=== PATIENT | female | born 1935 | race Caucasian/White ===

== ENCOUNTER → 2016-03-24 | Outpatient (CLI) | payer MEDICARE, BC ==
[~2016-03-24] MED LIST: ALPRAZOLAM0.25 M2 PO; BACTRIM DS 8001 TAB PO; BENTYL GENERIC10 MG PO; CIPRO 250MG TA250 MG PO; HYDROCODONE1 TABLE1; LISINOPRIL10 MG PO; NAPROXEN SODIU500 MG PO; XANAX 0.5MG TA0.5 MG PO; ZITHROMAX Z-PA250 M1 PO; ZYRTEC ALLERGY10 MG PO; Zofran4 MG PO
--- NOTE | 2016-03-24 18:59 | RADIOLOGY REPORT PS360 ---
CHEST(2 VIEWS-NOT PORTABLE) ORDERING PHYSICIAN : Juan Fam MD PATIENT AGE: 80 years GENDER: Female INDICATION: BRONCHOPNEUMONIA Cough 7 days TECHNIQUE: PA and lateral chest COMPARISON: 07/04/2015 2 view chest FINDINGS No significant change. No significant new findings. No focal pneumonia We again see prominent markings which appear to reflect scarring and generous pulmonary assess structures at the left infrahilar region, medial left base. This is unchanged since July 2015 study in March 2014 exam. Lungs hyperexpanded and clear. Otherwise. Old wedge compression fracture midthoracic vertebra I believe at T7 is stable since July 2015. Chest wall unchanged. No pleural effusion or findings. IMPRESSION: Stable chronic changes at the chest nothing definitely acute.
== END ==
LOC: RAD 12:46
DX: J18.0 Bronchopneumonia, unspecified organism (principal)

== ENCOUNTER → 2016-04-09 | Outpatient (CLI) | payer MEDICARE, BC ==
--- NOTE | 2016-04-09 19:20 | RADIOLOGY REPORT PS360 ---
KNEE-3 VIEWS-RT HISTORY: Knee pain OSTEOARTHRITIS ORDERING PHYSICIAN: Juan Fam MD PATIENT AGE: 80 years COMPARISON: None FINDINGS: There are severe osteoarthritic changes of the medial compartment and moderate osteoarthritic changes of the lateral compartment and severe osteoarthritic change of the patellofemoral joint. There is some cortical sclerosis and flattening of the medial femoral condyle. No acute fracture or dislocation. Nonspecific soft tissue calcifications are present along the medial aspect of the distal femur. IMPRESSION: 1. Severe osteoarthritic change as detailed above
== END ==
LOC: RAD 16:23
DX: M17.11 Unilateral primary osteoarthritis, right knee (principal)

== ENCOUNTER 2016-11-07 06:41 | Day surgery (SDC) | payer MEDICARE, BC ==
[~2016-11-07 06:41] MED LIST changes: +LISINOPRIL20 MG PO
--- NOTE | 2016-11-07 08:42 | Operative Note ---
Colonoscopy (Larissa) Procedure date: 11/07/16 Date of : 39 Procedure:Colonoscopy Colonoscopy with cold snare polypectomy Indications: Mrs. Schaeffer is a 80-year-old female who is here for follow-up screening/ surveillance colonoscopy. She does have a history of diverticulitis and chronic constipation. She is doing better with the regular use of the fiber bowel regimen (MiraLAX plus Citrucel by mouth twice a day). The patient was unable to tolerate a bowel prep previously. Her last colonoscopy was in November 2011 at which time she had a diminutive cecal polyp removed. The patient does state that her maternal aunt had colon cancer and her mother and brother had colon polyps. Her mother had ovarian cancer. The patient reports no rectal bleeding or weight loss. Performing Provider: Ladan Dias MD Referrring Provider: Juan Fam M.D. Sedation: Fentanyl 100 mg IV/Versed 7 mg IV Procedure: Prior to the procedure, a history and physical exam was performed, and patient medications and allergies were reviewed. The risks and benefits of the procedure and the sedation options and risks were discussed with the patient. All questions were answered and informed consent was obtained. Patient identification and proposed procedure were verified by the physician and the nurse. The patient was placed in a left lateral decubitus position. Throughout the procedure, the patient's blood pressure, pulse, and oxygen saturations were monitored continuously. Findings: On digital rectal examination there was normal rectal tone. There were no external hemorrhoids. The colonoscope was introduced through the anal canal to the rectum and advanced to the cecum. The ileocecal valve and appendiceal orifice were identified. The scope was advanced a short distance into the ileum which appeared grossly normal. The scope was then withdrawn into the colon. There were 4 colon polyps identified in the cecum 1, ascending 2 and descending 1. These ranged in size from 4-6 mm and were all removed via cold snare polypectomy. There were extensive scattered diverticuli throughout the descending and sigmoid colon (LEFT colon). The rectum itself was normal. Upon retroflexion within the rectum there were grade 1 internal hemorrhoids. Impressions: 1. Colonic polyps 4 2. Extensive left-sided diverticulosis 3. Grade 1 internal hemorrhoids Recommendations: I will follow up the polyp histology and recommend repeat screening/surveillance colonoscopy again in 3 years if all of the polyps are adenomatous. I would encourage continuation of the fiber bowel regimen (MiraLAX plus Citrucel twice a day) on a long-term daily maintenance basis. Complications: None EBL (ml): 0 at 0842
[2016-11-07 17:02] VITALS: BP 124/64
== END 2016-11-07 09:44 | disposition home or self-care (01) ==
LOC: SDC 06:41
PROVIDERS: Internal Medicine Gastroenterology
PROC: 0DBM8ZX Excision of Descending Colon, Via Natural or Artificial Opening Endoscopic, Diagnostic (ICD-10-PCS; 2016-11-07)
PROC: 0DBK8ZX Excision of Ascending Colon, Via Natural or Artificial Opening Endoscopic, Diagnostic (ICD-10-PCS; 2016-11-07)
PROC: 0DBH8ZX Excision of Cecum, Via Natural or Artificial Opening Endoscopic, Diagnostic (ICD-10-PCS; principal; 2016-11-07 08:00)
DX: Z12.11 Encounter for screening for malignant neoplasm of colon (principal); K57.30 Diverticulosis of large intestine without perforation or abscess without bleeding; K64.0 First degree hemorrhoids; Z80.41 Family history of malignant neoplasm of ovary; Z83.71 Family history of colonic polyps

== ENCOUNTER → 2017-01-19 | Outpatient (CLI) | payer MEDICARE, BC ==
[~2017-01-19] MED LIST changes: +DELSYM30 MG/5 ML PO; +ZITHROMAX Z PA250 MG PO
[2017-01-19 12:18] LABS: LYMPH # 1.3 K/mm3 (0.7-4.5); LYMPH % 26.9 % (10-50.0)
[2017-01-19 13:19] LABS: BUN 15 mg/dL (7-18)
[2017-01-19 13:22] LABS: GFR (ESTIMATED) 69 ML/MIN (59-)
== END ==
LOC: LAB 11:48
PROVIDERS: Internal Medicine Adolescent Medicine
DX: R11.0 Nausea (principal)

== ENCOUNTER 2017-01-26 15:58 | Emergency (ER) | payer MEDICARE, BC ==
[~2017-01-26] VITALS: Ht 165.1 cm; Wt 61.2 kg
[~2017-01-26 15:58] MED LIST changes: -DELSYM30 MG/5 ML PO; -ZITHROMAX Z PA250 MG PO
--- OUTSIDE RECORDS SUMMARY | 2017-01-26 16:03 | External Medical Summary Rpt ---
Author Author QUENTIN [facility] Organization [facility] Address Unknown Phone Unavailable Encounter QUENTIN AMBRIZ [id number] Date(s): 07/08/16 - 01/21/17 [facility] [address] [place] [address]- Discharge Disposition: OP Self Care or Home Attending Physician: ANABELL MCNEILL MD-ORT Admitting Physician: ANABELL MCNEILL MD-ORT Referring Physician: ANABELL MCNEILL MD-ORT Reason for Visit XXXXXX Vital Signs No data available for this section Problem List Condition Effective Status Health Informant Dates Status Cataracts, Resolved bilateral(Co nfirmed) Constipation Active (Confirmed) Diverticulit Active is(Confirmed ) Fibromyalgia Active (Confirmed) Heart Active patient murmur(Confi rmed) HTN Active (hypertensio n)(Confirmed ) Anxiety and Active depression(C onfirmed) Osteoarthrit Active is(Confirmed ) Osteoporosis Active (Confirmed) Allergies, Adverse Reactions, Alerts Substance Reaction Severity Status streptomycin tongue numb Active tongue numb albuterol dizziness,felt weird Active dizziness,felt weird statins Muscle ache Active Muscle ache Medications ALPRAZolam (ALPRAZolam 0.25 mg oral tablet)1 Tablet(s) Oral Every Day as needed as needed for anxiety. aspirin (aspirin 81 mg oral delayed release tablet)1 Tablet(s) Oral Two Times A Day for 6 weeks. x 6 weeks following ortho surgery. calcium-vitamin D (Calcium 600+D oral tablet) 2 Tablet(s) Oral Every Day. cholecalciferol (Vitamin D3 1000 intl units oral tablet)1 Tablet(s) Oral At Bedtime. chondroitin-glucosamine (Osteo Bi-Flex Triple Strength oral tablet)1 Tablet(s) Oral Every Day. docusate (Colace 100 mg oral capsule)1 Capsule(s) Oral Every Day as needed as needed for constipation. Refills: 0.Ordering provider: ONEL AVALOS PA gabapentin (gabapentin 300 mg oral capsule)1 Capsule(s) Oral once a day (at bedtime). Refills: 0.Ordering provider: ONEL AVALOS PA lisinopril (lisinopril 20 mg oral tablet) 1 Tablet(s) Oral Every Day. meloxicam (Mobic 15 mg oral tablet) 1 Tablet(s) Oral Every Day. Refills: 0. Ordering provider: ONEL AVALOS PA oxyCODONE (oxyCODONE 5 mg oral capsule)1-2 Cap mg Oral Q6H; as needed for pain. Refills: 0.Ordering provider: ONEL AVALOS PA polyethylene glycol 3350 (MiraLax oral powder for reconstitution)34 gm Oral At Bedtime. psyllium (Metamucil 3.4 g/5.2 g oral powder for reconstitution)3.4 Gram(s) Oral At Bedtime. traMADol (traMADol 50 mg oral tablet)1 Tablet(s) Oral Every 6 Hours as needed as needed for pain. Refills: 0.Ordering provider: ONEL AVALOS PA Results No data available for this section Immunizations No data available for this section Procedures No data available for this section Social History Social History Response Type Smoking Status Never smoker Assessment and Plan No data available for this section Hospital Discharge Instructions No data available for this section
--- OUTSIDE RECORDS SUMMARY | 2017-01-26 16:03 | External Medical Summary Rpt ---
Author Author QUENTIN [facility] Organization [facility] Address Unknown Phone Unavailable Encounter QUENTIN AMBRIZ [id number] Date(s): 07/08/16 - 01/21/17 [facility] [address] [place] [address]- Discharge Disposition: OP Self Care or Home [...]
--- OUTSIDE RECORDS SUMMARY | 2017-01-26 16:03 | External Medical Summary Rpt ---
Author Author QUENTIN [facility] Organization [facility] Address Unknown Phone Unavailable Encounter QUENTIN AMBRIZ [id number] Date(s): 12/31/16 - 01/21/17 [facility] [address] [place] [address]- Discharge Diagnosis: S/p knee replacement Discharge Disposition: IP Self Care / Home Attending Physician: FERNIE KUMAR MD-INT Admitting Physician: FERNIE KUMAR MD-INT Referring Physician: FERNIE KUMAR MD-INT Reason for Visit UNILATERAL PRIMARY OSTEOARTHRITIS, RIGHT KNEE Vital Signs Most recent 1 2 3 to oldest [Reference Range]: Temperature Oral (01/21/17 Oral (01/21/17 Oral (01/20/17 Source 7:20 AM) 3:58 AM) 10:37 PM) Temperature Fahrenheit Fahrenheit Fahrenheit Mode (01/21/17 7:20 (01/21/17 3:58 (01/20/17 10:37 AM) AM) PM) Temperature, 97.1 Deg F 98.5 Deg F 98.7 Deg F Fahrenheit (01/21/17 7:20 (01/21/17 3:58 (01/20/17 10:37 [96.8-99.7 AM) AM) PM) Deg F] Clinical 36.2 Deg C 36.9 Deg C 37.1 Deg C Temperature, (01/21/17 7:20 (01/21/17 3:58 (01/20/17 10:37 C AM) AM) PM) Pulse Method Non-Invasive BP Device (01/07/17 2:14 PM) Pulse Rhythm Irregular (01/07/17 2:14 PM) Peripheral 66 bpm Pulse Rate (01/07/17 2:14 PM) [60-100 bpm] Heart Rate 66 bpm (01/21/17 78 bpm (01/21/17 79 bpm (01/20/17 Monitored 7:20 AM) 3:58 AM) 10:37 PM) [60-100 bpm] Respiratory 16 Breaths/Min 16 Breaths/Min 13 Breaths/Min Rate [14-20 (01/21/17 7:20 (01/20/17 7:59 *LOW*(01/20/17 Breaths/Min] AM) PM) 3:40 PM) Blood Arm, left upper Arm, right upper Pressure (01/20/17 11:09 (01/07/17 2:14 PM) Location AM) Blood Non-Invasive BP Non-Invasive BP Pressure Device (01/20/17 Device (01/07/17 Source 11:09 AM) 2:14 PM) Blood Sitting (01/20/17 Sitting Pressure 11:09 AM) (01/07/17 2:14 PM) Position Blood 120/67 mmHg 105/60 mmHg 111/69 mmHg Pressure (01/21/17 7:20 (01/21/17 3:58 (01/20/17 10:37 [90-140/60-9 AM) AM) PM) 0 mmHg] Mean 85 mmHg (01/21/17 75 mmHg (01/21/17 83 mmHg (01/20/17 Arterial 7:20 AM) 3:58 AM) 10:37 PM) Pressure (MAP) Mean 92 (01/21/17 7:20 73 (01/21/17 3:58 88 (01/20/17 Arterial AM) AM) 10:37 PM) Pressure (MAP)-BMDI Oxygen 98 % (01/21/17 97 % (01/21/17 97 % (01/20/17 Saturation 7:20 AM) 3:58 AM) 10:37 PM) [94-100 %] Oxygen Room air Room air Room air Therapy Mode (01/21/17 8:00 (01/21/17 7:21 (01/20/17 8:00 AM) AM) PM) Oxygen Flow 2 Liter/Min 2 Liter/Min 2 Liter/Min Rate (01/20/17 3:40 (01/20/17 3:40 (01/20/17 3:20 PM) PM) PM) Height Stated (01/20/17 Stated (01/20/17 Stated Source 3:40 PM) 11:21 AM) (01/07/17 2:14 PM) Height Entry [place] Format (01/20/17 3:40 (01/20/17 11:21 (01/07/17 2:14 PM) PM) AM) Height/Lengt 63 Inch (01/20/17 63 Inch (01/20/17 63 Inch h [place] 3:40 PM) 11:21 AM) (01/07/17 2:14 PM) CLINICALHEIG 160.02 cm 160.02 cm 160.02 cm HT (01/20/17 3:40 (01/20/17 11:21 (01/07/17 2:14 PM) PM) AM) Weight Standing scale Standing scale Standing scale Source (01/20/17 3:40 (01/20/17 11:21 (01/07/17 2:14 PM) PM) AM) Weight Entry [place] Format (01/20/17 3:40 (01/20/17 11:21 (01/07/17 2:14 PM) PM) AM) Weight 142 lb (01/20/17 142 lb (01/20/17 142 lb [place] lb 3:40 PM) 11:21 AM) (01/07/17 2:14 PM) CLINICALWEIG 64.55 kg 64.55 kg 64.55 kg HT (01/20/17 3:40 (01/20/17 11:21 (01/07/17 2:14 PM) PM) AM) Body Surface 1.67 m2 (01/20/17 1.67 m2 (01/20/17 1.67 m2 Area (BSA) 3:40 PM) 11:21 AM) (01/07/17 2:14 PM) Body Mass 25.2 kg/m2 25.2 kg/m2 25.2 kg/m2 Index [19-24 *HI*(01/20/17 *HI*(01/20/17 *HI* kg/m2] 3:40 PM) 11:21 AM) (01/07/17 2:14 PM) [place] Body 52 kg (01/20/17 52 kg (01/20/17 52 kg Weight 3:40 PM) 11:21 AM) (01/07/17 2:14 PM) Problem List Condition Effective Status Health Informant [...] as needed for constipation. Refills: 0.Ordering provider: NOEL AVALOS PA gabapentin (gabapentin 300 mg oral [...] Refills: 0.Ordering provider: ONEL AVALOS PA Results GENERAL CHEMISTRY Most recent 1 2 to oldest [Reference Range]: Sodium Level 137 mmol/L 138 mmol/L [136-145 (01/21/17 3:44 AM) (01/20/17 8:37 PM) mmol/L] Potassium 4.2 mmol/L 4.4 mmol/L Level (01/21/17 3:44 AM) (01/20/17 8:37 PM) [3.5-5.1 mmol/L] Chloride 104 mmol/L 103 mmol/L Level (01/21/17 3:44 AM) (01/20/17 8:37 PM) [98-107 mmol/L] Carbon 24 mmol/L 24 mmol/L Dioxide (01/21/17 3:44 AM) (01/20/17 8:37 PM) Level [21-32 mmol/L] Anion Gap 13 15 [9-20] (01/21/17 3:44 AM) (01/20/17 8:37 PM) Glucose 158 mg/dL 292 mg/dL Level *HI* *HI* [74-106 (01/21/17 3:44 AM) (01/20/17 8:37 PM) mg/dL] Blood Urea 22 mg/dL 20 mg/dL Nitrogen *HI* *HI* [7-18 mg/dL] (01/21/17 3:44 AM) (01/20/17 8:37 PM) Creatinine 1.05 mg/dL 0.88 mg/dL Level *HI* (01/20/17 8:37 PM) [0.55-1.02 (01/21/17 3:44 AM) mg/dL] eGFR 61 mL/min/1.73m2 75 mL/min/1.73m2 [>=60 (01/21/17 3:44 AM) (01/20/17 8:37 PM) mL/min/1.73m 2] eGFR 51 mL/min/1.73m2 62 mL/min/1.73m2 NonAfrican *LOW* (01/20/17 8:37 PM) [>=60 (01/21/17 3:44 AM) mL/min/1.73m 2] Bun/Creatini 21.0 22.7 ne *HI* *HI* [8.0-20.0] (01/21/17 3:44 AM) (01/20/17 8:37 PM) Calcium 8.1 mg/dL 8.0 mg/dL Level *LOW* *LOW* [8.5-10.1 (01/21/17 3:44 AM) (01/20/17 8:37 PM) mg/dL] HEMATOLOGY Most recent 1 2 to oldest [Reference Range]: Hgb 10.1 Gram/dL 12.1 Gram/dL [11.2-15.7 *LOW* (01/20/17 2:42 PM) Gram/dL] (01/21/17 3:44 AM) Hct 30.9 % 37.9 % [34.1-44.9 *LOW* (01/20/17 2:42 PM) %] (01/21/17 3:44 AM) URINALYSIS Most recent 1 2 to oldest [Reference Range]: Urine Type. U CleanCatch *NA* (01/07/17 2:49 PM) Urine Color Yellow *NA* (01/07/17 2:49 PM) Urine Clear Appearance (01/07/17 2:49 PM) Urine 1.008 Specific (01/07/17 2:49 PM) [place] [1.005-1.030 ] Urine pH 7.0 Dipstick (01/07/17 2:49 PM) [6.0-8.0] Urine Negative Leukocyte (01/07/17 2:49 PM) Esterase [Negative] Urine Negative Nitrite (01/07/17 2:49 PM) [Negative] Urine Negative Protein (01/07/17 2:49 PM) Dipstick [Negative] Urine Negative Glucose (01/07/17 2:49 PM) Dipstick [Negative] Urine Negative Ketones (01/07/17 2:49 PM) Dipstick [Negative] Urine 0.2 EU/dL Urobilinogen (01/07/17 2:49 PM) Dipstick [0.2-1.0 EU/dL] Urine Negative Bilirubin (01/07/17 2:49 PM) Dipstick [Negative] Urine Blood Trace Dipstick *ABN* [Negative] (01/07/17 2:49 PM) Ur RBC [None 0-2 /HPF Seen /HPF] *ABN* (01/07/17 2:49 PM) Ur WBC [None 0-2 /HPF Seen /HPF] (01/07/17 2:49 PM) Ur Bacteria Trace [None Seen] *ABN* (01/07/17 2:49 PM) Ur Squamous 0-2 /HPF Epithelial (01/07/17 2:49 PM) Cells BLOOD BANK Most recent 1 2 to oldest [Reference Range]: ABO/Rh A POS *Unknown* (01/20/17 11:21 AM) Antibody Negative ABSC Screen (01/20/17 11:21 AM) (Tube) Immunizations No data available for this section Procedures Procedure Date Related Body Site Diagnosis left TKA 1995 cataracts removed bilaterally cholecystectomy colonoscopy hernia repair left salpingo oophorectomy tonsillectomy Social History Social History Response Type Smoking Status Never smoker Assessment and Plan Extracted from: Title: Pharmacy Note- Author: Serjio, Date: 01/21/17 Discharge Medications Teddy Roman, Pharmacist Pharmacy reviewed the patient's chart including labs, microbiology, vital signs, recent physician's notes, home medications, inpatient medications, and discharge medications for discrepancies. Please see the list below for home medications at discharge. Discussed discharge with patient.Home Medications (13) ActiveALPRAZolam 0.25 mg oral tablet 0.25 mg = 1 Tab, PRN, Oral, Dailyaspirin 81 mg oral delayed release tablet 81 mg = 1 Tab, Oral, BIDCalcium 600+D oral tablet 2 Tab, Oral, DailyColace 100 mg oral capsule 100 mg = 1 Cap, PRN, Oral, Dailygabapentin 300 mg oral capsule 300 mg = 1 Cap, Oral, Once a day (at bedtime)lisinopril 20 mg oral tablet 20 mg = 1 Tab, Oral, DailyMetamucil 3.4 g/5.2 g oral powder for reconstitution 3.4 Gram, Oral, At BedtimeMiraLax oral powder for reconstitution 34 gm, Oral, At BedtimeMobic 15 mg oral tablet 15 mg = 1 Tab, Oral, DailyOsteo Bi-Flex Triple Strength oral tablet 1 Tab, Oral, DailyoxyCODONE 5 mg oral capsule See Instructions, PRNtraMADol 50 mg oral tablet 50 mg = 1 Tab, PRN, Oral, [id number] D3 1000 intl units oral tablet 1,000 Int Units = 1 Tab, Oral, At BedtimeThank you,Teddy Bassett, PharmD Thank you, Teddy Bassett, PharmD Extracted from: Title: Discharge Note Author: ONEL AVALOS Date: 01/21/17 JARROD PEÑA Discharge: Home Procedure: Right TKA Complications: None DVT Prophylaxis: Aspirin 81 mg tabs, 1 BID for 45 days. Script written, on chart WB Status: WBAT Therapy goals: Hospital ROM Continue Crescencio at home all times when not performing PT/HEP TID Prone Hangs, patient shown how to perform CPM machine 0-110 Goal- Knee flexion 110 degrees ALEJANDRINA F/U in clinic 2-3 weeks Discharge Instructions: 1)Elevate the knee and the entire lower extremity for as much as possible for 6 weeks and use ice liberally for 30 minutes 3-4 times a day. 2)Patient may shower on the 3rd day after surgery, but must keep the wound or dressing completely dry until discussed on first post op visit. The patient should not take any soaking baths until 1 month after surgery. 3) Patient may bear as much weight as tolerated on the affected extremity. TUBS (passive exertion) exercises for 30 minutes TID are effective initially after surgery, but after the 1st week, the patient should progress to prone hangs to help with knee straightening postoperatively. 4) Patient will be on blood thinner for 4 to 6 weeks after surgery. The blood thinner may vary for each patient. 5) You may remove the JESUS day after surgery and leave the incision uncovered if it is completely dry.PLEASE DO NOT REMOVE MESH PRINIO DRESSING. 6) An JESUS wrap can be used to cover the wound to maintain compression and decrease swelling. 7) Call for wound drainage that is present beyond 7 days after surgery. 9) Motion is more important than strength or walking distance during the first 6 weeks after surgery. 10)Gabapentin 300 mg tabs,Oxycodone 5mg, Tramadol 50mg tabstabs will be used for postoperative pain control and should be weaned as the patient can tolerate. Discharge Orders Discharge - Ordered -- Start: 01/21/17 9:52:00 EST, Discharge to: Home with Home Care stable home stable home Extracted from: Title: Progress/SOAP Author: AMIRA, Date: 01/21/17 Note RADHA, PAC Unilateral primary osteoarthritis, right kneeM17.11,Unilateral primary osteoarthritis, right kneeM17.11 1. ok for HH discharge2. standard TKA rehab Hospital Discharge Instructions Patient EducationCompression Stockings Cryotherapy, Lwhz-np-Albt Fall Prevention and Home Safety, Xtkx-hl-Lzqf Hand Washing, Fivn-yv-Wffv Knee Immobilizer, Izok-qp-Jpfe Knee Rehabilitation, Guidelines Following Surgery Destiny Rogers TKA Discharge Instructions (Custom) Total Knee Replacement, Care After, Xbzc-fh-Apow Total Knee Replacement, Senp-tw-Njtp Walker Use
--- OUTSIDE RECORDS SUMMARY | 2017-01-26 16:03 | External Medical Summary Rpt ---
Author Author QUENTIN [facility] Organization [facility] Address Unknown Phone Unavailable Encounter QUENTIN AMBRIZ [id number] Date(s): 12/31/16 - 01/21/17 [facility] [address] [place] [address]- Discharge Diagnosis: S/p knee replacement Discharge Disposition: [...] 11:21 AM) (01/07/17 2:14 PM) Height Entry [place] Format (01/20/17 3:40 (01/20/17 11:21 (01/07/17 2:14 PM) PM) AM) Height/Lengt 63 Inch (01/20/17 63 Inch (01/20/17 63 Inch h FAROESE 3:40 PM) 11:21 AM) (01/07/17 2:14 PM) CLINICALHEIG 160.02 cm 160.02 cm 160.02 cm HT (01/20/17 3:40 (01/20/17 11:21 (01/07/17 2:14 PM) PM) AM) Weight Standing scale Standing scale Standing scale Source (01/20/17 3:40 (01/20/17 11:21 (01/07/17 2:14 PM) PM) AM) Weight Entry [place] Format (01/20/17 3:40 (01/20/17 11:21 (01/07/17 2:14 PM) PM) AM) Weight 142 lb (01/20/17 142 lb (01/20/17 142 lb [place] lb 3:40 PM) 11:21 AM) (01/07/17 2:14 [...] 3:40 PM) 11:21 AM) (01/07/17 2:14 PM) [place] Body 52 kg (01/20/17 52 kg (01/20/17 [...] PM) Urine 1.008 Specific (01/07/17 2:49 PM) [place] [1.005-1.030 ] Urine pH 7.0 Dipstick (01/07/17 [...] 50 mg = 1 Tab, PRN, Oral, [id number] D3 1000 intl units oral tablet 1,000 [...] Hospital Discharge Instructions Patient EducationCompression Stockings Cryotherapy, Ycqg-yt-Cxaj Fall Prevention and Home Safety, Jxtx-rg-Kjbi Hand Washing, Ogvc-xr-Mcol Knee Immobilizer, Mjjh-bb-Wvbk Knee Rehabilitation, Guidelines Following Surgery Destiny Rogers TKA Discharge Instructions (Custom) Total Knee Replacement, Care After, Cils-ez-Jgez Total Knee Replacement, Myrw-hz-Ajay Walker Use
--- OUTSIDE RECORDS SUMMARY | 2017-01-26 16:04 | External Medical Summary Rpt ---
Author Author DEANDRE Barlow, [employer] Organization [employer] Address Unknown Phone Unavailable Results Basic metabolic panel in Blood Observa Value Referen Units Interpr Notes Date tion ce etation Range Urea 7 - 18 mg/dL Normal No Jan 19 nitrogen informati 2016 [Mass/vol on in 11:50 AM ume] in source Serum or data Plasma Calcium 8.5 - mg/dL Normal No Jan 19 [Mass/vol 10.1 informati 2016 ume] in on in 11:50 AM Serum or source Plasma data Chloride 98 - 107 mmoL/L High No Jan 19 [Moles/vo informati 2016 lume] in on in 11:50 AM Serum or source Plasma data Carbon 21.0 - mmoL/L Normal No Jan 19 dioxide, 32.0 informati 2016 total on in 11:50 AM [Moles/vo source lume] in data Serum or Plasma Creatinin 0.55 - mg/dL Normal No Jan 19 e 1.02 informati 2016 [Mass/vol on in 11:50 AM ume] in source Serum or data Plasma Estimated 59- ML/MIN No REFERENCE Jan 19 informati RANGE: 2017 glomerula on in >60 11:50 AM r source ML/MIN/1. filtratio data 73 SQUARE n rate METERSIf (GF this patient is -A merican, then multiply theresult by 1.210. Glucose 74 - 106 mg/dL Normal No Jan 19 [Mass/vol informati 2016 ume] in on in 11:50 AM Serum or source Plasma data Potassium 3.5 - 5.1 mmoL/L Normal No Jan 19 informati 2016 [Moles/vo on in 11:50 AM lume] in source Serum or data Plasma Sodium 136 - 145 mmoL/L Normal No Jan 19 [Moles/vo informati 2016 lume] in on in 11:50 AM Serum or source Plasma data CBC W Auto Differential panel in Blood Observa Value Referen Units Interpr Notes Date ti ce etation Range Basophils 0 - 0.2 K/MM3 Normal No Jan 192016 [#/volume on in 11:50 AM ] in source Blood by data Automated count Basophils 0.1 - 2.0 % Normal No Jan 19 /100 inform2016 leukocyte on in 11:50 AM s in source Blood by data Automated count Eosinophi 0.0 - 0.4 K/mm3 Normal No Jan 19 ls 2016 [#/volume on in 11:50 AM ] in source Blood by data Automated count Eosinophi 0.1 - % Normal No Jan 19 ls/100 12.0 inform2016 leukocyte on in 11:50 AM s in source Blood by data Automated count Granulocy 1.8 - 7.8 K/mm3 Normal No Jan 19 t[place] 2016 [#/volume on in 11:50 AM ] in source Blood by data Automated count Granulocy 37.0 - % Normal No Jan 19 troy/100 80.0 2016 leukocyte on in 11:50 AM s in source Blood by data Automated count Hematocri 37.0 - % Normal No Jan 19 t [Volume 47.0 2016 on in 11:50 AM Fraction] source of Blood data Hemoglobi 12.2 - g/dL Normal Jan 19 n 16.2 2016 [Mass/vol on in 11:50 AM ume] in source Blood data Lymphocyt 0.7 - 4.5 K/mm3 Normal No Jan 19 es 2016 [#/volume on in 11:50 AM ] in source Unspecifi data ed specimen by Automated count Lymphocyt 10 - 50.0 % Normal No Jan 19 es 2016 [#/volume on in 11:50 AM ] in source Unspecifi data ed specimen by Automated count Erythrocy 27 - 31.2 pg Normal No Jan 19 te mean 2016 corpuscul on in 11:50 AM ar source hemoglobi data n [Entitic mass] Erythrocy 31.8 - g/dl Low No Jan 19 te mean 35.4 2016 corpuscul on in 11:50 AM ar source hemoglobi data n concentra tion [Mass/vol ume] by Automated count Erythrocy 82.2 - fl Normal Jan 19 te mean 97.8 2016 corpuscul on in 11:50 AM ar volume source [Entitic data volume] by Automated count Monocytes 0.1 - 1.0 K/mm3 Normal No Jan 192016 [#/volume on in 11:50 AM ] in source Blood by data Automated count Monocytes 1.7 - 9.3 % Normal No Jan 19 /100 informati 2016 leukocyte on in 11:50 AM s in source Blood by data Automated count Platelet 7.4 - fl Normal No Jan 19 mean 10.4 inform2016 volume on in 11:50 AM [Entitic source volume] data in Blood by Automated count Platelets 142 - 424 K/mm3 Normal Jan 19 informati 2016 [#/volume on in 11:50 AM ] in source Blood data Erythrocy 4.2 - 5.4 M/mm3 Normal No Jan 19 troy informati 2016 [#/volume on in 11:50 AM ] in source Amniotic data fluid Erythrocy 11.5 - % Normal Jan 19 te 17.5 informati 2016 distribut on in 11:50 AM ion width source [Entitic data volume] by Automated count Leukocyte 4.8 - K/MM3 Normal Jan 19 s 10.8 informati 2016 [#/volume on in 11:50 AM ] in source Blood data Comprehensive metabolic 2000 panel in Serum or Plasma Observa Value Referen Units Interpr Notes Date tion ce etation Range Albumin/G 1.1 - 1.8 No Low No Sep 21 lobulin informati informati 2016 9:00 [Mass on in on in PM ratio] in source source Serum or data data Plasma Albumin 3.4 - 5.0 gm/dL Low No Sep 21 [Mass/vol informati 2016 9:00 ume] in on in PM Serum or source Plasma data Alkaline 46 - 116 U/L Normal No Sep 21 phosphata informati 2016 9:00 se on in PM [Enzymati source c data activity/ volume] in Serum or Plasma Bilirubin 0.2 - 1.0 mg/dL Normal No Sep 21 .total informati 2016 9:00 [Mass/vol on in PM ume] in source Serum or data Plasma Urea 7 - 18 mg/dL Normal No Sep 21 nitrogen informati 2016 9:00 [Mass/vol on in PM ume] in source Serum or data Plasma Calcium 8.5 - mg/dL Low No Sep 21 [Mass/vol 10.1 informati 2016 9:00 ume] in on in PM Serum or source Plasma data Chloride 98 - 107 mmoL/L High No Sep 21 [Moles/vo informati 2017 9:00 lume] in on in PM Serum or source Plasma data Carbon 21.0 - mmoL/L Normal No Sep 21 dioxide, 32.0 informati 2017 9:00 total on in PM [Moles/vo source lume] in data Serum or Plasma Creatinin 0.55 - mg/dL Normal No Sep 21 e 1.02 informati 2017 9:00 [Mass/vol on in PM ume] in source Serum or data Plasma Creatinin 50 - 200 ML/MIN Normal No Sep 21 e renal informati 2016 9:00 clearance on in PM source predicted data by Cockcroft -Gault formula Estimated 59- ML/MIN No REFERENCE Sep 21 informati RANGE: 2017 9:00 glomerula on in >60 PM r source ML/MIN/1. filtratio data 73 SQUARE n rate METERSIf (GF this patient is -A merican, then multiply theresult by 1.210. Globulin 1.3 - 3.2 gm/dL Normal No Sep 21 [Mass/vol informati 2016 9:00 ume] in on in PM Serum source data Glucose 74 - 106 mg/dL Normal No Sep 21 [Mass/vol informati 2016 9:00 ume] in on in PM Serum or source Plasma data Potassium 3.5 - 5.1 mmoL/L Low Sep 21 2016 9:00 [Moles/vo CRITICAL PM lume] in RESULTS Serum or Plasma RESU LTS CALLED TO: Antoinette MEDINA RN [id number] [place] Sodium 136 - 145 mmoL/L Normal No Sep 21 [Moles/vo informati 2017 9:00 lume] in on in PM Serum or source Plasma data Aspartate 15 - 37 U/L Normal No Sep 21 informati 2016 9:00 aminotran on in PM sferase source [Enzymati data c activity/ volume] in Serum or Plasma Alanine 12 - 78 U/L Normal No Sep 21 aminotran informati 2016 9:00 sferase on in PM [Enzymati source c data activity/ volume] in Serum or Plasma Protein 6.4 - 8.2 gm/dL Low No Sep 21 [Mass/vol informati 2016 9:00 ume] in on in PM Serum or source Plasma data CBC W Auto Differential panel in Blood Observa Value Referen Units Interpr Notes Date tion ce etation Range Granulocy 1.8 - 7.8 K/mm3 Normal No Sep 21 troy informati 2016 9:00 [#/volume on in PM ] in source Blood by data Automated count Granulocy 37.0 - % Normal No Sep 21 troy/100 80.0 informati 2016 9:00 leukocyte on in PM s in source Blood by data Automated count Hematocri 37.0 - % Normal No Sep 21 t [Volume 47.0 informati 2016 9:00 on in PM Fraction] source of Blood data Hemoglobi 12.2 - g/dL Normal No Sep 21 n 16.2 informati 2016 9:00 [Mass/vol on in PM ume] in source Blood data Lymphocyt 0.7 - 4.5 K/mm3 Normal No Sep 21 es informati 2016 9:00 [#/volume on in PM ] in source Unspecifi data ed specimen by Automated count Lymphocyt 10 - 50.0 % Normal No Sep 21 es informati 2016 9:00 [#/volume on in PM ] in source Unspecifi data ed specimen by Automated count Erythrocy 27 - 31.2 pg Normal No Sep 21 te mean informati 2016 9:00 corpuscul on in PM ar source hemoglobi data n [Entitic mass] Erythrocy 31.8 - g/dl Normal No Sep 21 te mean 35.4 informati 2016 9:00 corpuscul on in PM ar source hemoglobi data n concentra tion [Mass/vol ume] by Automated count Erythrocy 82.2 - fL Normal No Sep 21 te mean 97.8 informati 2016 9:00 corpuscul on in PM ar volume source [Entitic data volume] by Automated count Monocytes 0.1 - 1.0 K/mm3 Normal No Sep 21 informati 2016 9:00 [#/volume on in PM ] in source Blood by data Automated count Monocytes 1.7 - 9.3 % Normal No Sep 21 informati 2017 9:00 leukocyte on in PM s in source Blood by data Automated count Platelets 142 - 424 K/mm3 Normal No Sep 21 informati 2016 9:00 [#/volume on in PM ] in source Blood data Erythrocy 4.2 - 5.4 M/mm3 Normal No Sep 21 troy informati 2016 9:00 [#/volume on in PM ] in source Amniotic data fluid Erythrocy 11.5 - % Normal No Sep 21 te 17.5 informati 2016 9:00 distribut on in PM ion width source [Entitic data volume] by Automated count Leukocyte 4.8 - K/mm3 Normal No Sep 21 s 10.8 informati 2016 9:00 [#/volume on in PM ] in source Blood data
--- OUTSIDE RECORDS SUMMARY | 2017-01-26 16:04 | External Medical Summary Rpt | CCD ---
Author Author , DEANDRE Organization [facility] Address Unknown Phone [email or web address] Purpose Continuity of Care Document - 09-21-2016 through 2016 Problems Code Diagnosis DOS Provider Status [id number] M85.89 OTH DISRD OF BONE DENSITY AND STRUCTURE, MULTIPLE SITES R11.0 NAUSEA S20.219A CONTUSION OF UNSPECIFIED FRONT WALL OF THORAX, INIT ENCNTR S30.1XXA CONTUSION OF ABDOMINAL WALL, INITIAL ENCOUNTER Results Labs Lab Lab Date Result Refere Interp Status Commen Order Detail nces retati t Range on CBC w auto diff (01-19-2017 11:50) Automat = 0.1 0-0.2 complet ed 017 K/MM3 ed blood 11:50 basophi l count (count/ vo Baso % = 1.1 % 0.1-2.0 complet 017 ed 11:50 Automat = 0.1 0.0-0.4 complet ed 017 K/mm3 ed blood 11:50 eosinop hil count Automat = 2.2 % 0.1-12. complet ed 017 0 ed blood 11:50 eosinop hils/10 0 leukocy t Blood = 3.2 1.8-7.8 complet granulo 017 K/mm3 ed cytes 11:50 automat ed count (numb Granulo = 65.1 37.0-80 complet cyte 017 % .0 ed percent 11:50 age Blood = 41.0 37.0-47 complet hematoc 017 % .0 ed rit 11:50 (volume fractio n) Blood = 13.0 12.2-16 complet hemoglo 017 g/dL .2 ed bin 11:50 measure ment (mass/v olum Absolut = 1.3 0.7-4.5 complet e 017 K/mm3 ed lymphoc 11:50 yte count Lymphoc = 26.9 10-50.0 complet yte 017 % ed count, 11:50 blood, automat ed Mean 01-19- = 29.5 27-31.2 complet corpusc 017 pg ed ular 11:50 hemoglo bin ([facility]) determ Automat = 31.7 31.8-35 complet ed 017 g/dl .4 ed erythro 11:50 cyte mean corpusc ular h Automat = 92.9 82.2-97 complet ed 017 fl .8 ed erythro 11:50 cyte mean corpusc ular v Absolut = 0.2 0.1-1.0 complet e 017 K/mm3 ed monocyt 11:50 e count [place] % = 4.7 % 1.7-9.3 complet 017 ed 11:50 Automat = 9.3 7.4-10. complet ed 017 fl 4 ed blood 11:50 platele t mean volume ivan Blood = 201 142-424 complet platele 017 K/mm3 ed t count 11:50 Red = 4.42 4.2-5.4 complet blood 017 M/mm3 ed cell 11:50 count Automat = 12.6 11.5-17 complet ed 017 % .5 ed erythro 11:50 cyte distrib ution width Blood = 4.9 4.8-10. complet leukocy 017 K/MM3 8 ed troy 11:50 count (number /volume ) Basic metabolic panel (01-19-2017 11:50) Serum 01-19-2 = 15 7-18 complet or 017 mg/dL ed plasma 11:50 urea nitroge n measure men Carbon = 28 21.0-32 complet dioxide 017 mmoL/L .0 ed 11:50 measure ment Serum 2 = 0.8 0.55-1. complet or 017 mg/dL 02 ed plasma 11:50 creatin ine measure ment ( Estimat = 69 59- complet ed 017 ML/MIN ed glomeru 11:50 lar filtrat ion rate (GF Comment: REFERENCE RANGE: >60 ML/MIN/1.73 SQUARE METERS Comment: If this patient is -[place], then multiply the Comment: result by 1.210. Serum 11-20-2 = 90 74-106 complet or 017 mg/dL ed plasma 11:50 glucose measure ment ([facility] Serum 11-20-2 = 4.7 3.5-5.1 complet potassi 017 mmoL/L ed um 11:50 measure ment Serum 11-20-2 = 145 136-145 complet sodium 017 mmoL/L ed measure 11:50 ment Serum 11-20-2 = 9.2 8.5-10. complet or 017 mg/dL 1 ed plasma 11:50 calcium measure ment (mas Serum 11-20-2 = 108 98-107 complet or 017 mmoL/L ed plasma 11:50 chlorid e measure ment (mo
--- OUTSIDE RECORDS SUMMARY | 2017-01-26 16:04 | External Medical Summary Rpt | CCD ---
Author Author , DEANDRE Organization [facility] Address Unknown Phone [email or web address] Purpose Continuity of Care Document - 09-21-2016 through 2016 Problems Code Diagnosis DOS Provider Status [id number] M85.89 OTH DISRD OF BONE DENSITY AND [...] 017 K/mm3 ed monocyt 11:50 e count [place] % = 4.7 % 1.7-9.3 complet 017 [...] SQUARE METERS Comment: If this patient is -[place], then multiply the Comment: result by 1.210. Serum 11-20-2 = 90 74-106 complet or 017 mg/dL ed plasma 11:50 glucose measure ment ([facility] Serum 11-20-2 = 4.7 3.5-5.1 complet [...]
--- OUTSIDE RECORDS SUMMARY | 2017-01-26 16:04 | External Medical Summary Rpt | CCD ---
Author Author , DEANDRE CARRERA Address Unknown Phone [email or web address] Immunization Name Date Rout CVX Reac Dose Comm Prov Is Faci e tion ent ider Refu lity Give sed n Infl 11-0 Intr 0.5 Hist PD20 No PD20 uenz 6-20 amus mL oric 255 255 a 17 cula al Quad r Info rmat W/Pr ion es - Sour ce Unsp ecif ied
--- OUTSIDE RECORDS SUMMARY | 2017-01-26 16:04 | External Medical Summary Rpt | CCD ---
Author Author , DEANDRE CARRERA Address Unknown Phone .[employer] Immunization Name Date Rout CVX Reac Dose Comm Prov Is Faci e tion ent ider Refu lity Give sed n Infl 11-0 Intr 0.5 Hist PD20 No PD20 uenz 6-20 amus mL oric 255 255 a 17 cula al Quad r Info rmat W/Pr ion es - Sour ce Unsp ecif ied
--- NOTE | 2017-01-26 16:29 | Urgent Treatment Center Report ---
History of Present Issue Date/Time Seen by Provider 01/26/17 1623 Visit Reason Pt arrived:Walked Presenting Problem:PT STATES SHE HAS HAD A COUGH FOR 2 NIGHTS THAT HAS KEPT HER AWAKE. COMPLAINS OF SORE THROAT. KNEE SURGERY 6 DAYS AGO. Location if Accident: Onset of symptoms date/time:/ or onset unknown for:MEDICAL HX UNKNOWN Have you (or family members/close friends) recently traveled outside the [place]? N If Yes, where/when: Have you had exposure to infectious disease within the past month? TB? Other? Specify: Patient states that she had surgery done last week on her knee State that for the last 2 days she has had cough and sore throat that has kept her awake State that it has continued to get worse over the last couple of days State that her throat feels raw and irritated and it make her cough ALLERGIES Coded Allergies: No Known Allergies (09/21/16) Home Medications Reported Medications Alprazolam 0.25 MG PO BID #90 Lisinopril 20 MG PO DAILY #30 History Medical History General CAD? No Angina: No IN: No Hypertension? Yes Hyperlipidemia? Yes CHF? No DVT? No PE? No COPD? No Asthma? Yes Anemia? No GERD? No Gastric ulcers? No GI Bleed? No Hernia? Yes Thyroid Problems? No Hypothyroidism? No CVA? No Seizures? No Diabetes? No Renal Insuffiency? No UTI? Yes Stones? No BPH? No GB Disease: Yes Nephritic Syndrome? No Asplenia? No Hepatitis? No Sickle Cell Disease? No Arthritis? Yes Migraines? No Cataracts? Yes Glaucoma? No MRSA? No HIV? No TB? No Anxiety? No Depression? No Cancer? No More? 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 Respiratory cough, denies shortness of breath, denies wheezing Physical Exam Vital Signs Vital Signs Date Time Temp Pulse Resp B/P Pulse O2 O2 Flow FiO2 Ox Delivery Rate 01/26 1607 97.9 84 18 146/83 98 General Appearance normal appearance, WD/WN, no apparent distress Ear, Nose, Throat Throat red, irritated drainage noted Respiratory Status Yes: trachea midline, chest symmetrical, non tender chest. No: respiratory distress. Lung Sounds bilateral: normal breath sounds, lungs clear. Cardiovascular normal exam, regular rate/rhythm, no peripheral edema Neurologic alert, normal exam, oriented x 3 Medical Decision Making LABS/Meds/Orders Pt receiving controlled substance in ED? No Departure Departure Time of Disposition 1647 Disposition DC Home or Self Care(routine) Clinical Impression Primary Impression: Upper respiratory infection Qualifiers: URI type: unspecified URI Qualified Code: J06.9 - Acute upper respiratory infection, unspecified Condition STABLE Referrals Cristel AGEE,Juan (Family): 2 Days-Call Office if no improvement or worsening of symtpoms Patient Instructions Sore Throat Additional Instructions * Monitor Temp. Tylenol and/or Ibuprofen as needed. ER if fever is no less than 101 despite alternating Tylenol and Ibuprofen * Encourage fluids, water, Gatorade, powerade, pedialyte if infant/toddler/or child * Warm salt water gargles for throat irritation *Warm fluids *Sore throat lozenges *Sleep elevated *humidifier or vaporizer Lots of rest Increase fluids, water, Gatorade, powerade Follow up IMMEDIATELY for new or worsening of symptoms OR no noticeable improvement over the next 48-72 hours. 911 immediately for any life threatening symptoms such as chest pain or difficulty breathing Discharge Counseling Counseled pt/family regarding diagnosis, medications/RX, home care, follow up needs Prescriptions Current Visit Scripts Azithromycin (Zithromycin (Z-LILIAM) 250MG Tab) 250 MG PO DAILY #6 TAB TAKE TWO (2) TABLETS ON DAY 1, THEN ONE (1) TABLET DAY #2 THRU #5 Dextromethorphan Polistirex (Delsym) 1 TSP PO Q12H #120 ML at 1658
[2017-01-26] MEDS ORDERED: DELSYM30 MG/5 ML PO (16:49)
[2017-01-26] MEDS ORDERED: ZITHROMAX Z PA250 MG PO (16:49)
[2017-01-26 16:54] VITALS: BP 146/83
== END 2017-01-26 16:55 | disposition home or self-care (01) ==
LOC: UTC 15:58
DX: J06.9 Acute upper respiratory infection, unspecified (principal); J45.909 Unspecified asthma, uncomplicated; I10 Essential (primary) hypertension; E78.5 Hyperlipidemia, unspecified